=== PATIENT | female | born 1995 | race Caucasian/White ===

== ENCOUNTER 2017-12-22 09:02 | Inpatient (IN) | payer MEDICAID ==
[2017-12-22] MEDS ORDERED: ONDANSETRON HCL INJ/PF 4 MG/2 ML SDV IV ONE ×2 (09:34→16:08)
[2017-12-22] MEDS ORDERED: NORMAL SALINE 1000 ML 1,000 ML IV ONE (09:34)
--- NOTE | 2017-12-22 09:36 | ER Document Report ---
ED GI/ - General Chief Complaint: Abdominal Pain Stated Complaint: ABDOMINAL PAIN Time Seen by Provider: 12/22/17 09:27 Mode of Arrival: Ambulatory Information source: Patient Notes: Patient presents complaining of lower abdominal pain off and on since yesterday. Patient states she has had nausea and vomiting 4 episodes today. Patient denies any diarrhea or urinary symptoms. Patient states that she has not had a bowel movement for the past 2 days. Patient does complain of chills. Patient denies any vaginal discharge although is currently on her menstrual cycle. TRAVEL OUTSIDE OF THE [place] IN LAST 30 DAYS: No - HPI Patient complains to provider of: Pelvic pain, Vomiting. No: Diarrhea, Flank pain, Onset: Yesterday Timing/Duration: Persistent Quality of pain: Achy Pain Level: 3 Context: Other - Lower pelvic Location: Pelvis Vaginal bleeding (Compared to normal period): Similar Sexual history: Active Associated symptoms: Chills, Diarrhea, Nausea, Vomiting. denies: Fever Exacerbated by: Denies Relieved by: Denies Similar symptoms previously: No Recently seen / treated by doctor: No - Related Data Allergies/Adverse Reactions: No Known Allergies Allergy (Unverified 12/22/17 09:04) Past Medical History - General Information source: Patient - Social History Smoking Status: Current Every Day Smoker Frequency of alcohol use: None Drug Abuse: None Occupation: Foodservice Lives with: Spouse/Significant other Family History: Reviewed & Not Pertinent - Medical History Medical History: Negative Past Surgical History: Reports: Hx Gynecologic Surgery - Left ovary Review of Systems - Review of Systems Constitutional: Chills. denies: Fever, Recent illness EENT: No symptoms reported Cardiovascular: No symptoms reported. denies: Chest pain Respiratory: No symptoms reported. denies: Cough, Short of breath Gastrointestinal: Abdominal pain, Nausea, Vomiting. denies: Diarrhea, Blood streaked bowels, Poor appetite Genitourinary: No symptoms reported. denies: Dysuria, Flank pain Female Genitourinary: Last menstrual period - Current, Vaginal bleeding Musculoskeletal: No symptoms reported Skin: No symptoms reported Hematologic/Lymphatic: No symptoms reported Neurological/Psychological: No symptoms reported Physical Exam - Vital signs Vitals: Temp Pulse Resp BP Pulse Ox 98.0 F 61 24 H 115/62 100 12/22/17 09:13 12/22/17 09:13 12/22/17 09:13 12/22/17 09:13 12/22/17 09:13 - General General appearance: Appears well, Alert In distress: None - HEENT Head: Normocephalic, Atraumatic Eyes: Normal Conjunctiva: Normal Nasal: Normal Mouth/Lips: Normal Mucous membranes: Normal Neck: Normal - Respiratory Respiratory status: No respiratory distress Chest status: Nontender Breath sounds: Normal. No: Rales, Rhonchi, Stridor, Wheezing Chest palpation: Normal - Cardiovascular Rhythm: Regular Heart sounds: S1 appreciated, S2 appreciated Murmur: No - Abdominal Inspection: Normal Distension: No distension Bowel sounds: Normal Tenderness: Tender - Lower pelvic Organomegaly: No organomegaly - Genitourinary External exam: Normal Speculum exam: Normal, Cervix closed Vaginal bleeding: Mild Bimanuel exam: Normal. No: Cervical motion tender, Adnexal tenderness - Back Back: Normal, Nontender. No: CVA tenderness, Vertebra tenderness - Extremities General upper extremity: Normal ROM, Other - Patient holding hands in attendance awkward position, with distraction hands relax General lower extremity: Normal inspection, Normal ROM - Neurological Neuro grossly intact: Yes Cognition: Normal Caesar Coma Scale Eye Opening: Spontaneous [place] Coma Scale Verbal: Oriented Caesar Coma Scale Motor: Obeys Commands Caesar Coma Scale Total: 15 - Psychological Associated symptoms: Normal affect, Normal mood - Skin Skin Temperature: Warm Skin Moisture: Dry Skin Color: Normal Course - Re-evaluation Re-evalutation: 12/22/17 11:02 Patient continues with lower pelvic pain, patient does guard with palpation of the right lower quadrant. Patient without any adnexal or cervical motion tenderness. 12/22/17 12:[address] Ruiz regarding patient exam findings and diagnostic evaluation thus far. Agrees with plan for CT imaging and recommends treating the chlamydia. 12/22/17 15:[address] Casper return patient CT report findings. Dr. Casper to review patient's scan images. 12/22/17 15:30 Dr. Casper to come and evaluate patient 12/22/17 15:52 Dr. Casper evaluated patient, agrees to bring patient in for observation admission. - Vital Signs Vital signs: Temp Pulse Resp BP Pulse Ox 99.4 F 70 20 118/73 100 12/22/17 16:50 12/22/17 16:50 12/22/17 16:50 12/22/17 16:50 12/22/17 16:50 - Laboratory Result Diagrams: 12/22/17 09:50 12/22/17 09:50 Laboratory results interpreted by me: 12/22/17 12/22/17 12/22/17 09:50 09:50 10:15 WBC 13.0 H Hgb 11.5 L Hct 35.8 L MCV 73 L MCH 23.6 L RDW 19.4 H Seg Neutrophils % 86.7 H Lymphocytes % 10.0 L Monocytes % 2.8 L Absolute Neutrophils 11.2 H Carbon Dioxide 20 L Glucose 111 H Calcium 10.6 H Total Protein 9.0 H Albumin 5.2 H Urine Protein 100 H Urine Ketones 20 H Chlamydia DNA (PCR) 12/22/17 10:30 WBC Hgb Hct MCV MCH RDW Seg Neutrophils % Lymphocytes % Monocytes % Absolute Neutrophils Carbon Dioxide Glucose Calcium Total Protein Albumin Urine Protein Urine Ketones Chlamydia DNA (PCR) DETECTED H Discharge - Discharge Clinical Impression: Chlamydia, Small bowel obstruction Abdominal pain Qualifiers: Abdominal location: unspecified location Qualified Code(s): R10.9 - Unspecified abdominal pain Condition: Stable Disposition: ADMITTED OBSERVATION Admitting Provider: Surgicalist Unit Admitted: Medical Floor
[2017-12-22 10:08] LABS: ABSOLUTE BASOPHILS # (AUTO) 0.1 10^3/uL (0.0-0.2); ABSOLUTE LYMPHOCYTES (AUTO) 1.3 10^3/uL (0.5-4.7); ABSOLUTE MONOCYTES (AUTO) 0.4 10^3/uL (0.1-1.4); ABSOLUTE NEUT (AUTO) 11.2 10^3/uL (1.7-8.2); BASOPHILS % (AUTO) 0.5 % (0-2); HEMATOCRIT 35.8 % (36.0-47.0); HEMOGLOBIN 11.5 g/dL (12.0-15.5); MEAN CORPUSCULAR HEMOGLOBIN 23.6 pg (27.0-33.4); MEAN CORPUSCULAR HGB CONC 32.2 g/dL (32.0-36.0); MEAN CORPUSCULAR VOLUME 73 fl (80-97); MONOCYTES % (AUTO) 2.8 % (3-13); PLATELET COUNT 441 10^3/uL (150-450); RED BLOOD COUNT 4.87 10^6/uL (3.72-5.28); RED CELL DISTRIBUTION WIDTH 19.4 % (11.5-14.0); SEGMENTED NEUTROPHILS % (AUTO) 86.7 % (42-78); TOTAL CELLS COUNTED % (AUTO) 100 %
[2017-12-22 10:30] LABS: APPEARANCE,URINE SLIGHTLY-CLOUDY; BILIRUBIN,URINE NEGATIVE (NEGATIVE); COLOR,URINE YELLOW; GLUCOSE, URINE NEGATIVE (NEGATIVE); KETONES,URINE 20 mg/dL (NEGATIVE); LEUKOCYTE ESTERASE,URINE NEGATIVE (NEGATIVE); NITRITE,URINE NEGATIVE (NEGATIVE); PROTEIN,URINE 100 mg/dL (NEGATIVE); URINE SPECIFIC GRAVITY 1.028; UROBILINOGEN,URINE NEGATIVE mg/dL (<2.0)
[2017-12-22 10:37] LABS: ALANINE AMINOTRANSFERASE 23 U/L (9-52); ALBUMIN 5.2 g/dL (3.5-5.0); ALKALINE PHOSPHATASE 85 U/L (38-126); ANION GAP 17 (5-19); ASPARTATE AMINO TRANSFERASE 24 U/L (14-36); BILIRUBIN,DIRECT 0.3 mg/dL (0.0-0.4); BILIRUBIN,TOTAL 0.7 mg/dL (0.2-1.3); BLOOD UREA NITROGEN 16 mg/dL (7-20); CALCIUM 10.6 mg/dL (8.4-10.2); CARBON DIOXIDE 20 mmol/L (22-30); CHLORIDE 105 mmol/L (98-107); GLUCOSE 111 mg/dL (75-110); LIPASE 49.3 U/L (23-300); POTASSIUM 3.7 mmol/L (3.6-5.0); SODIUM 141.6 mmol/L (137-145)
[2017-12-22] MEDS ORDERED: KETOROLAC TROMETHAMINE INJ/PF 30 MG/1 ML SDV IV ONE (10:39)
[2017-12-22 10:46] LABS: BACTERIA (WET MOUNT) 4+ BACTERIA SEEN; EPITHELIALS (WET MOUNT) 3+ EPITHELIALS SEEN; RBCS (WET MOUNT) 4+ RBCS SEEN; T.VAGINALIS (WET MOUNT) NO TRICHOMONAS SEEN; WBCS (WET MOUNT) 1+ WBCS SEEN; YEAST (WET MOUNT) NO YEAST SEEN
[2017-12-22] MEDS ORDERED: FENTANYL CITRATE INJ/PF 100 MCG/2 ML AMPUL IV ONE (11:02)
[2017-12-22 12:15] LABS: CHLAM PCR DETECTED (NOT DETECT); GON PCR NOT DETECTED (NOT DETECT)
[2017-12-22] MEDS: NORMAL SALINE 1000 ML 1,000 ML IV PRN ×2 (12:46→18:45)
--- NOTE | 2017-12-22 14:46 | RADIOLOGY REPORT (SQ) ---
EXAM DESCRIPTION: CT ABD/PELVIS WITH IV ORAL COMPLETED DATE/TIME: 12/22/2017 2:23 pm REASON FOR STUDY: pelvic pain COMPARISON: None. TECHNIQUE: CT scan of the abdomen and pelvis performed using helical scanning technique with dynamic intravenous contrast injection. Patient drank oral contrast. Images reviewed with lung, soft tissue, and bone windows. Reconstructed coronal and sagittal MPR images reviewed. Delayed images for evaluation of the urinary system also ac quired. All images stored on PACS. All CT scanners at this facility use dose modulation, iterative reconstruction, and/or weight based d osing when appropriate to reduce radiation dose to as low as reasonably achievable (ALARA). [facility]: Dose Right [facility]: CareDose [facility]: Dose Right [facility]: Teradose 4D [facility]: about.me CONTRAST TYPE AND DOSE: contrast/concentration: Isovue 370.00 mg/ml; Total Contrast Delivered: 62.0 ml; Total Saline Delivered: 65.0 ml RENAL FUNCTION: Creatinine 0.6 RADIATION DOSE: CT Rad equipment meets quality standard of care and radiation dose reduction techniq ues were employed. CTDIvol: 5.1 - 5.9 mGy. DLP: 581 mGy-cm.. LIMITATIONS: None. FINDINGS: Patient drank oral contrast. There is distention of the stomach and distention of the mid to distal small bowel. On axial images 57 through 71, coronal images 15 through 29, a transition po int between normal caliber distal small bowel loops and dilated mid small bowel loops is present in t he suprapubic region. There is a tethered appearing loop of adjacent sigmoid colon. Findings are wo rrisome for at least partial small bowel obstruction related to adhesions in the pelvis. Trace posterior pelvic cul-de-sac and right lower quadrant free fluid. This was discussed with Zulma Graf in the emergency room. LOWER CHEST: Lung bases are clear. LIVER: Normal size. No masses. No dilated ducts. SPLEEN: Normal size. No focal lesions. PANCREAS: No masses. No significant calcifications. No adjacent inflammation or peripancreatic fluid collections. Pancreatic duct not dilated. GALLBLADDER: No identified stones by CT criteria. No inflammatory changes to suggest cholecystitis. ADRENAL GLANDS: No significant masses or asymmetry. RIGHT KIDNEY AND URETER: No solid masses. No significant calcifications. No hydronephrosis or hyd roureter. LEFT KIDNEY AND URETER: No solid masses. No significant calcifications. No hydronephrosis or hydr oureter. AORTA AND VESSELS: No aneurysm. No dissection. Renal arteries, SMA, celiac without stenosis. RETROPERITONEUM: No retroperitoneal adenopathy, hemorrhage or masses. BOWEL AND PERITONEAL CAVITY: As above APPENDIX: Surgically absent PELVIS: No mass. No free fluid. Normal bladder. Normal size uterus. Right ovary, left ovary not we ll seen. ABDOMINAL WALL: No masses. No hernias. BONES: No significant or acute findings. OTHER: No other significant finding. IMPRESSION: Findings worrisome for small bowel obstruction with transition point between dilated mid small bowel and decompressed distal small bowel is in the suprapubic region. Adjacent colon with te thered appearance. Findings are worrisome for adhesions TECHNICAL DOCUMENTATION: JOB ID: [id number] Quality ID # [id number]: Final reports with documentation of one or more dose reduction techniques (e.g., Au tomated exposure control, adjustment of the mA and/or kV according to patient size, use of iterative reconstruction technique) 2010 [employer] (Closed)- All Rights Reserved Reading location - IP/workstation name: [email or web address]
[2017-12-22] MEDS ORDERED: AZITHROMYCIN INJ 500 MG VIAL IV ONE (15:31)
[2017-12-22] MEDS ORDERED: RINGERS SOLUTION,LACTATED 1,000 ML IV PRN ×2 (18:37→23:02)
--- NOTE | 2017-12-22 18:43 | PDOC H&P ---
History of Present Illness Admission Date/PCP: 12/22/17 16:54 History of Present Illness: GERARDO GONZALEZ is a 22 year old female The patient presents emergency department via ground rescue complaining of a 2 day history of abdominal pain, worse yesterday, 10 episodes of vomiting, no bowel movement for 2 days. She denies history of trauma, previous episode. She was evaluated in the emergency department where she was initially felt to have urinary tract infection, possible pelvic inflammatory disease, positive for chlamydia on PCR. She was given a dose of Zithromax. Because of persisting abdominal pain and nausea she had a CT scan of the abdomen and pelvis with findings consistent with a small bowel obstruction, specifically dilated loop of distal small bowel in the pelvis. Surgery was consulted and because of these findings she was advised admission. Past Medical History Cardiac Medical History: Reports: Atrial Fibrillation Past Surgical History Past Surgical History: Reports: Other - Exploratory laparotomy, appendectomy, left oophorectomy, [place], 1 yea Social History Lives with: Spouse/Significant other Smoking Status: Current Every Day Smoker Hx Recreational Drug Use: No Hx Prescription Drug Abuse: No Family History Family History: Reviewed & Not Pertinent Parental Family History Reviewed: Yes Children Family History Reviewed: Yes Sibling(s) Family History Reviewed.: Yes Medication/Allergy Home Medications: No Home Medications 12/22/17 Allergies/Adverse Reactions: No Known Allergies Allergy (Unverified 12/22/17 09:04) Review of Systems Constitutional: PRESENT: as per HPI Eyes: ABSENT: visual disturbances Ears: ABSENT: hearing changes Cardiovascular: ABSENT: chest pain, dyspnea on exertion, edema, orthropnea, palpitations Gastrointestinal: ABSENT: abdominal pain, constipation, diarrhea, hematemesis, hematochezia, nausea, vomiting Genitourinary: ABSENT: dysuria, hematuria Musculoskeletal: ABSENT: joint swelling Integumentary: ABSENT: rash, wounds Endocrine: ABSENT: cold intolerance, heat intolerance, polydipsia, polyuria Physical Exam Vital Signs: Temp Pulse Resp BP Pulse Ox 99.4 F 70 20 118/73 100 12/22/17 16:50 12/22/17 16:50 12/22/17 16:50 12/22/17 16:50 12/22/17 16:50 General appearance: PRESENT: mild distress Head exam: PRESENT: normocephalic Eye exam: PRESENT: EOMI Mouth exam: PRESENT: dry mucosa Respiratory exam: PRESENT: clear to auscultation [place] Cardiovascular exam: PRESENT: RRR Pulses: PRESENT: normal carotid pulses, normal radial pulses GI/Abdominal exam: PRESENT: other - Mild distention, mild tympany, no peritoneal signs no rigidity. Well-healed midline scar below the umbilicus, no hernias. No groin hernias Rectal exam: PRESENT: deferred Extremities exam: PRESENT: full ROM Musculoskeletal exam: PRESENT: ambulatory Psychiatric exam: PRESENT: appropriate affect Results Impressions: Abdomen/Pelvis CT 12/22/17 00:00 IMPRESSION: Findings worrisome for small bowel obstruction with transition point between dilated mid small bowel and decompressed distal small bowel is in the suprapubic region. Adjacent colon with tethered appearance. Findings are worrisome for adhesions Assessment & Plan - Diagnosis (1) Small bowel obstruction Is this a current diagnosis for this admission?: Yes Plan: First episode, possibly due to an adhesion from previous abdominal surgery, improved, no nasogastric tube inserted yet. Recommendations: 1. Admit, IV fluids, n.p.o., plus minus NG tube if patient becomes nauseated 2. Plan to patient that if her symptoms do not improve, she may require exploratory laparotomy, lysis of adhesion. (2) Chlamydia Is this a current diagnosis for this admission?: Yes Plan: Treated with Zithromax. - Time Time Spent: 50 to 70 Minutes Critical Time spent with patient: 15-24 minutes Anticipated discharge: Home - Inpatient Certification Based on my medical assessment, after consideration of the patient's comorbidities, presenting symptoms, or acuity I expect that the services needed warrant INPATIENT care.: Yes I certify that my determination is in accordance with my understanding of Medicare's requirements for reasonable and necessary INPATIENT services [42 CFR 412.3e].: Yes Medical Necessity: Need For IV Fluids, Need for Pain Control, Need for IV Antibiotics
[2017-12-22] MEDS ORDERED: DEXTROSE 40% GEL 15 GM TUBE PO PRN ×2 (19:27)
[2017-12-22] MEDS ORDERED: GLUCAGON,HUMAN RECOMB 1 MG INJ SUBCUT PRN (19:27)
[2017-12-22] MEDS ORDERED: DEXTROSE 50%-WATER 25 GM/50 ML DISP.SYRIN IV PRN ×2 (19:27)
[2017-12-22] MEDS ORDERED: PHARMACY COMMUNICATION ORDER MC NR (23:00)
[2017-12-22] MEDS ORDERED: NORMAL SALINE 1000 ML 1,000 ML IV PRN (23:03)
[2017-12-22] MEDS ORDERED: DEXTROSE 40% GEL 15 GM TUBE NG PRN ×2 (23:30)
[2017-12-23] MEDS ORDERED: NORMAL SALINE 1000 ML 1,000 ML IV PRN (00:42)
[2017-12-23] MEDS ORDERED: NORMAL SALINE 1000 ML 1,000 ML IV ONE (01:45)
[2017-12-23] MEDS: KETOROLAC TROMETHAMINE INJ/PF 30 MG/1 ML SDV IV PRN (02:56)
[2017-12-23 06:43] LABS: ANION GAP 12 (5-19); BLOOD UREA NITROGEN 10 mg/dL (7-20); CALCIUM 8.7 mg/dL (8.4-10.2); CARBON DIOXIDE 22 mmol/L (22-30); CHLORIDE 107 mmol/L (98-107); GLUCOSE 111 mg/dL (75-110); POTASSIUM 3.5 mmol/L (3.6-5.0); SODIUM 141.4 mmol/L (137-145)
--- NOTE | 2017-12-23 08:32 | RADIOLOGY REPORT (SQ) ---
EXAM DESCRIPTION: ABDOMEN 2 VIEWS COMPLETED DATE/TIME: 12/23/2017 8:09 am REASON FOR STUDY: f/u bowel obstruction COMPARISON: CT dated 12/22/2017. NUMBER OF VIEWS: Two views. TECHNIQUE: Supine and erect/decubitus radiographic images of the abdomen acquired. LIMITATIONS: None. FINDINGS: FREE AIR: Dilated small bowel with air-fluid levels. Faint contrast in the small bowel. LUNG BASES: Clear. BOWEL GAS PATTERN: Nonobstructive pattern. No dilated loops or air fluid levels. CALCIFICATIONS: No suspicious calcifications. SOFT TISSUES: No gross mass or suggestion of organomegaly. HARDWARE: Nasogastric tube with the tip in the stomach. BONES: No acute fracture. No worrisome bone lesions. OTHER: No other significant finding. IMPRESSION: SMALL BOWEL OBSTRUCTION. NASOGASTRIC TUBE WITH THE TIP IN STOMACH. TECHNICAL DOCUMENTATION: JOB ID: [id number] [employer]- All Rights Reserved Reading location - IP/workstation name: [email or web address]
[2017-12-23] MEDS: ONDANSETRON HCL INJ/PF 4 MG/2 ML SDV IV PRN ×2 (08:43)
[2017-12-23] MEDS ORDERED: CEFOXITIN SODIUM 2 GM in DEXTROSE 5%-WATER 100 ML IV PRN (10:10)
--- NOTE | 2017-12-23 10:26 | PDOC PROGRESS REPORT ---
Subjective Progress Note for:: 12/23/17 Subjective:: no c/o. no flatus or stoosl this AM Reason For Visit: SMALL BOWEL OBSTRUCTIONS Physical Exam Vital Signs: Temp Pulse Resp BP Pulse Ox 98.0 F 49 L 18 110/53 L 100 12/23/17 08:44 12/23/17 08:44 12/23/17 08:44 12/23/17 08:44 12/23/17 08:44 Intake & Output 12/22/17 12/23/17 12/24/17 06:59 06:59 06:59 Intake Total 240 Output Total 800 Balance -560 Weight 62.5 kg General appearance: PRESENT: no acute distress, cooperative Respiratory exam: PRESENT: clear to auscultation [place] Cardiovascular exam: PRESENT: RRR GI/Abdominal exam: PRESENT: distended, hypoactive bowel sounds, soft Results Laboratory Results: 12/23/17 06:11 12/23/17 06:11 Sodium 141.4 Potassium 3.5 L Chloride 107 Carbon Dioxide 22 Anion Gap 12 BUN 10 Creatinine 0.60 Est GFR ( Amer) > 60 Est GFR (Non-Af Amer) > 60 Glucose 111 H Calcium 8.7 Impressions: Abdomen/Pelvis CT 12/22/17 00:00 IMPRESSION: Findings worrisome for small bowel obstruction with transition point between dilated mid small bowel and decompressed distal small bowel is in the suprapubic region. Adjacent colon with tethered appearance. Findings are worrisome for adhesions Abdomen X-Ray 12/23/17 00:00 IMPRESSION: SMALL BOWEL OBSTRUCTION. NASOGASTRIC TUBE WITH THE TIP IN STOMACH. Assessment & Plan - Diagnosis (1) Abdominal pain Qualifiers: Abdominal location: unspecified location Qualified Code(s): R10.9 - Unspecified abdominal pain Is this a current diagnosis for this admission?: Yes (2) Small bowel obstruction Is this a current diagnosis for this admission?: Yes - Plan Summary Plan Summary: A/ No flatus x 3 days and small stool last night Flat plate of the abdomen reveals complete small bowel obstruction today: no progress of dye x 12 hours and gasless colon hx of previous laparotomy for Left ovarietomy and incidental appendectomy 1 year ago P/ Plan diagnostic laparoscopy, lysis of adhesions, possible laparotomy, possible bowel resection Mefoxin IVPB preop Procedure, risks, benefits explained to the patient, she understand, her questions were answered, and she decides to proceed
[2017-12-23] MEDS ORDERED: LIDOCAINE 2% INJ-PF (20 MG/ML) 10 ML AMPUL ONE (10:28)
[2017-12-23] MEDS ORDERED: FENTANYL CITRATE INJ/PF 100 MCG/2 ML AMPUL ONE (10:28)
[2017-12-23] MEDS ORDERED: MIDAZOLAM 2 MG/2 ML INJ ONE (10:29)
[2017-12-23] MEDS ORDERED: DEXAMETHASONE SOD PHOSPHATE INJ 4 MG/1 ML VIAL ONE (10:29)
[2017-12-23] MEDS ORDERED: ACETAMINOPHEN 100 ML IV ONE (10:29)
[2017-12-23] MEDS ORDERED: ONDANSETRON HCL INJ/PF 4 MG/2 ML SDV ONE (10:29)
[2017-12-23] MEDS ORDERED: PROPOFOL INJ 200 MG/20 ML VIAL IV ONE (10:29)
[2017-12-23] MEDS ORDERED: BUPIVACAINE HCL 0.5%-EPI 1:200000 INJ/PF 30 ML VIAL ONE (11:54)
[2017-12-23] MEDS ORDERED: DIPHENHYDRAMINE HCL 50 MG/ML VIAL IV PRN (12:03)
[2017-12-23] MEDS ORDERED: MORPHINE SULFATE 10 MG/ML INJ IV PRN (12:03)
[2017-12-23] MEDS ORDERED: MEPERIDINE HCL/PF INJ 25 MG/1 ML DISP.SYRIN IV PRN (12:03)
[2017-12-23] MEDS ORDERED: PROMETHAZINE HCL INJ 25 MG/1 ML VIAL IV PRN ×2 (12:03)
[2017-12-23] MEDS ORDERED: FENTANYL CITRATE INJ/PF 100 MCG/2 ML AMPUL IV PRN ×3 (12:03)
--- NOTE | 2017-12-23 13:34 | Operative Report ---
Nonrecallable Operative Report DATE OF SURGERY: 12/23/17 PREOPERATIVE DIAGNOSIS: completre small bowel obstruction OPERATION: diagnostic laparoscopy. Extensive laparoscopic lysis of adhesions SURGEON: ELAINE ORLANDO 1ST WORKFORCE ANALYST: SUZANNE DENTON ANESTHESIA: GA - plus 10 mL 0.5% marcaine with epi TISSUE REMOVED OR ALTERED: none COMPLICATIONS: none ESTIMATED BLOOD LOSS: negligible INTRAOPERATIVE FINDINGS: several loops of terminal ileum matted together against the anterior abdominal wall and among themselves PROCEDURE: see dictation
[2017-12-23] MEDS ORDERED: ONDANSETRON HCL INJ/PF 4 MG/2 ML SDV IV PRN (15:34)
--- NOTE | 2017-12-23 16:45 | OPERATIVE REPORT E ---
Operative Report NAME: GERARDO GONZALEZ : 1995 AGE: 22Y DATE OF SURGERY: 12/23/2017 ROOM: 208 PREOPERATIVE DIAGNOSIS: Small bowel obstruction, complete. POSTOPERATIVE DIAGNOSIS: Small bowel obstruction, complete. PROCEDURES: 1. Diagnostic laparoscopy. 2. Extensive laparoscopic lysis of adhesions. SURGEON: ELAINE ORLANDO M.D. FASTENER TECHNOLOGIST: Dr. DENTON. COMPLICATIONS: None. ANESTHESIA: General. FLUIDS: 1500. URINE OUTPUT: 300. DRAINS: None. BLOOD LOSS: Negligible. INDICATION AND FINDINGS: This is a 22-year-old female status post open elective oophorectomy with an incidental appendectomy a year ago at [facility]. The patient presented to the hospital yesterday with abdominal distention, nausea, vomiting, found to have a complete small bowel obstruction on CAT scan and on repeated films this morning. This morning, the decision was made to take the patient to surgery for diagnostic laparoscopy, possible laparotomy, possible lysis of adhesions. DESCRIPTION OF PROCEDURE: The procedure was done in the operating room. The patient was placed in the supine position. General anesthesia was induced by endotracheal intubation. Silva catheter was inserted. Abdomen was prepped and draped in the usual fashion. A 5 mm scope with Optiview adapter and port was inserted through the left upper quadrant under direct visualization. A pneumoperitoneum was then obtained. Under direct visualization, two 5 mm ports were inserted in the left lateral quadrant of the abdomen. The patient was placed in deep Trendelenburg position. At this point, the small bowel was run. Several loops of bowel were found to be decompressed and adherent to the anterior abdominal wall. These were taken down with both Bovie and sharp dissection. When this was accomplished, the cecum was identified and the small bowel was run from the terminal ileum to the ligament of Treitz. Several loops of terminal ileum were found to be mattered to each other. These loops were then painstakingly with sharp and LigaSure dissection. The small bowel was completely dissected and . In addition, multiple single strings of scar tissue around the loops of small bowel were identified and these were divided with Bovie. After this was accomplished, the small bowel was run multiple times in the distal proximal and proximal distal fashion. No injuries of the serosa or violation of the mucosa were identified. This was confirmed multiple times. After this was accomplished, the peritoneal cavity was irrigated with normal saline, which was fully aspirated. At this point, all instruments were removed. The CO2 pneumoperitoneum was released. The ports were removed. The skin incisions were closed with 4-0 Vicryl running subcuticular suture and covered with Dermabond. The patient was then extubated and transferred to the recovery room in satisfactory condition. DICTATING PHYSICIAN: ELAINE ORLANDO M.D. [id number] PHY#: [id number] ID: [id number] JOB#: [id number] ACCT: [id number] cc:ELAINE ORLANDO M.D. > MTDD
[2017-12-23] MEDS: NORMAL SALINE 1000 ML 1,000 ML IV PRN (20:00)
[2017-12-23] MEDS ORDERED: VECURONIUM BROMIDE INJ 10 MG VIAL IV ONE (21:18)
[2017-12-23] MEDS ORDERED: GLYCOPYRROLATE INJ 0.4 MG/2 ML VIAL ONE (21:18)
[2017-12-23] MEDS ORDERED: SUCCINYLCHOLINE CHLORIDE INJ 200 MG/10 ML VIAL ONE (21:18)
[2017-12-23] MEDS ORDERED: NEOSTIGMINE METHYLSULFATE 10 MG/10 ML VIAL ONE (21:18)
[2017-12-23] MEDS: CEFOXITIN SODIUM 2 GM in DEXTROSE 5%-WATER 100 ML IV SCH (22:14)
[2017-12-23] MEDS: FAMOTIDINE INJ/PF 20 MG/2 ML SDV IV SCH (22:14)
[2017-12-24] MEDS: NORMAL SALINE 1000 ML 1,000 ML IV PRN ×3 (03:28→21:36)
[2017-12-24] MEDS: CEFOXITIN SODIUM 2 GM in DEXTROSE 5%-WATER 100 ML IV SCH ×3 (06:32→21:37)
[2017-12-24] MEDS: ENOXAPARIN SODIUM INJ 40 MG/0.4 ML DISP.SYRIN SUBCUT SCH (09:46)
[2017-12-24] MEDS: HYDROMORPHONE HCL INJ/PF 2 MG/ML AMPULE IV PRN (09:47)
[2017-12-24] MEDS: FAMOTIDINE INJ/PF 20 MG/2 ML SDV IV SCH ×2 (09:47→21:38)
[2017-12-24] MEDS: KETOROLAC TROMETHAMINE INJ/PF 30 MG/1 ML SDV IV PRN (13:41)
--- NOTE | 2017-12-24 14:31 | PDOC PROGRESS REPORT ---
Subjective Progress Note for:: 12/24/17 Subjective:: Comfortable, reports flatus and stools Reason For Visit: SMALL BOWEL OBSTRUCTIONS Physical Exam Vital Signs: Temp Pulse Resp BP Pulse Ox 97.9 F 54 L 16 109/51 L 100 12/24/17 11:25 12/24/17 11:25 12/24/17 11:25 12/24/17 11:25 12/24/17 11:25 Intake & Output 12/23/17 12/24/17 12/25/17 06:59 06:59 06:59 Intake Total 600 Output Total 350 350 Balance 250 -350 Weight 62.5 kg General appearance: PRESENT: no acute distress, cooperative Respiratory exam: PRESENT: clear to auscultation [place] Cardiovascular exam: PRESENT: RRR GI/Abdominal exam: PRESENT: normal bowel sounds, soft, other - all incision C/D/ I Results Impressions: Abdomen/Pelvis CT 12/22/17 00:00 IMPRESSION: Findings worrisome for small bowel obstruction with transition point between dilated mid small bowel and decompressed distal small bowel is in the suprapubic region. Adjacent colon with tethered appearance. Findings are worrisome for adhesions Abdomen X-Ray 12/23/17 00:00 IMPRESSION: SMALL BOWEL OBSTRUCTION. NASOGASTRIC TUBE WITH THE TIP IN STOMACH. Assessment & Plan - Diagnosis (1) Abdominal pain Qualifiers: Abdominal location: unspecified location Qualified Code(s): R10.9 - Unspecified abdominal pain Is this a current diagnosis for this admission?: Yes (2) Small bowel obstruction Is this a current diagnosis for this admission?: Yes - Plan Summary Plan Summary: A/ POD #1 after laparoscopic lysis of adhesions VSS, AF Flatus and stools Abdomen soft P/ Clamp NGT x 4 hours: if residual less than 100 mL, remove NGT and Silva Advance diet to clear liquid if NGT is removed Possible discharge tomorrow
[2017-12-25] MEDS: KETOROLAC TROMETHAMINE INJ/PF 30 MG/1 ML SDV IV PRN ×3 (03:21→15:26)
[2017-12-25 05:19] LABS: ABSOLUTE BASOPHILS # (AUTO) 0.1 10^3/uL (0.0-0.2); ABSOLUTE LYMPHOCYTES (AUTO) 2.7 10^3/uL (0.5-4.7); ABSOLUTE MONOCYTES (AUTO) 0.4 10^3/uL (0.1-1.4); BASOPHILS % (AUTO) 0.9 % (0-2); EOSINOPHILS % (AUTO) 0.7 % (0-6); HEMATOCRIT 28.2 % (36.0-47.0); LYMPHOCYTES % (AUTO) 43.7 % (13-45); MEAN CORPUSCULAR HEMOGLOBIN 24.4 pg (27.0-33.4); MEAN CORPUSCULAR HGB CONC 32.6 g/dL (32.0-36.0); MEAN CORPUSCULAR VOLUME 75 fl (80-97); MONOCYTES % (AUTO) 6.2 % (3-13); PLATELET COUNT 234 10^3/uL (150-450); RED BLOOD COUNT 3.77 10^6/uL (3.72-5.28); RED CELL DISTRIBUTION WIDTH 19.3 % (11.5-14.0); SEGMENTED NEUTROPHILS % (AUTO) 48.5 % (42-78); TOTAL CELLS COUNTED % (AUTO) 100 %; WHITE BLOOD COUNT 6.1 10^3/uL (4.0-10.5)
[2017-12-25 05:23] LABS: HEMOGLOBIN 9.2 g/dL (12.0-15.5)
[2017-12-25 05:35] LABS: ANION GAP 10 (5-19); BLOOD UREA NITROGEN 8 mg/dL (7-20); CALCIUM 8.8 mg/dL (8.4-10.2); CARBON DIOXIDE 26 mmol/L (22-30); CHLORIDE 106 mmol/L (98-107); GLUCOSE 77 mg/dL (75-110); POTASSIUM 3.3 mmol/L (3.6-5.0); SODIUM 141.7 mmol/L (137-145)
[2017-12-25] MEDS: CEFOXITIN SODIUM 2 GM in DEXTROSE 5%-WATER 100 ML IV SCH ×2 (06:04→13:13)
[2017-12-25] MEDS: HYDROMORPHONE HCL INJ/PF 2 MG/ML AMPULE IV PRN ×3 (06:27→13:13)
[2017-12-25] MEDS: FAMOTIDINE INJ/PF 20 MG/2 ML SDV IV SCH (09:10)
[2017-12-25] MEDS: ENOXAPARIN SODIUM INJ 40 MG/0.4 ML DISP.SYRIN SUBCUT SCH (09:10)
[2017-12-25] MEDS ORDERED: LIDOCAINE 2% INJ-PF (20 MG/ML) 2 ML AMPUL ONE (11:22)
[2017-12-25] MEDS ORDERED: ROCURONIUM BROMIDE INJ 50 MG/5 ML VIAL IV ONE (11:22)
[2017-12-25] MEDS ORDERED: NEOSTIGMINE METHYLSULFATE 10 MG/10 ML VIAL ONE (11:22)
[2017-12-25] MEDS ORDERED: ONDANSETRON HCL INJ/PF 4 MG/2 ML SDV ONE (11:22)
[2017-12-25] MEDS ORDERED: KETOROLAC TROMETHAMINE 60 MG/2 ML SDV ONE (11:22)
[2017-12-25] MEDS ORDERED: SUCCINYLCHOLINE CHLORIDE INJ 200 MG/10 ML VIAL ONE (11:22)
[2017-12-25] MEDS ORDERED: DEXAMETHASONE SOD PHOSPHATE INJ 4 MG/1 ML VIAL ONE (11:22)
[2017-12-25] MEDS ORDERED: GLYCOPYRROLATE INJ 0.4 MG/2 ML VIAL ONE (11:22)
[2017-12-25] MEDS ORDERED: SIMETHICONE 80 MG TAB.CHEW NG ONE (12:43)
[2017-12-25] MEDS ORDERED: DOCUSATE SODIUM 100 MG CAPSULE PO ONE (13:30)
[2017-12-25] MEDS ORDERED: GLUCAGON,HUMAN RECOMB 1 MG INJ SUBCUT PRN (13:30)
[2017-12-25] MEDS ORDERED: DEXTROSE 50%-WATER 25 GM/50 ML DISP.SYRIN IV PRN ×2 (13:30)
[2017-12-25] MEDS ORDERED: DEXTROSE 40% GEL 15 GM TUBE PO PRN ×2 (13:30)
[2017-12-25] MEDS ORDERED: NORMAL SALINE 1000 ML 1,000 ML IV PRN (13:31)
--- NOTE | 2017-12-25 13:37 | PDOC PROGRESS REPORT ---
Subjective Progress Note for:: 12/25/17 Subjective:: flatus present; small hard stools today, c/o midabdominal pain Reason For Visit: SMALL BOWEL OBSTRUCTIONS Physical Exam Vital Signs: Temp Pulse Resp BP Pulse Ox 99.9 F 74 20 111/51 L 100 12/25/17 12:00 12/25/17 12:00 12/25/17 12:00 12/25/17 12:00 12/25/17 07:15 Intake & Output 12/24/17 12/25/17 12/26/17 06:59 06:59 06:59 Intake Total 600 1650 Output Total 350 2470 Balance 250 -820 Weight 62.5 kg General appearance: PRESENT: no acute distress, cooperative Respiratory exam: PRESENT: clear to auscultation [place] Cardiovascular exam: PRESENT: RRR GI/Abdominal exam: PRESENT: normal bowel sounds, soft, tenderness - at surgical incisions, other - no peritoneal signs on gentle tapping Results Laboratory Results: 12/25/17 05:01 12/25/17 05:01 12/25/17 12/25/17 05:01 05:01 WBC 6.1 RBC 3.77 Hgb 9.2 L D Hct 28.2 L MCV 75 L MCH 24.4 L MCHC 32.6 RDW 19.3 H Plt Count 234 Seg Neutrophils % 48.5 Lymphocytes % 43.7 Monocytes % 6.2 Eosinophils % 0.7 Basophils % 0.9 Absolute Neutrophils 3.0 Absolute Lymphocytes 2.7 Absolute Monocytes 0.4 Absolute Eosinophils 0.0 Absolute Basophils 0.1 Sodium 141.7 Potassium 3.3 L Chloride 106 Carbon Dioxide 26 Anion Gap 10 BUN 8 Creatinine 0.55 Est GFR ( Amer) > 60 Est GFR (Non-Af Amer) > 60 Glucose 77 Calcium 8.8 Impressions: Abdomen/Pelvis CT 12/22/17 00:00 IMPRESSION: Findings worrisome for small bowel obstruction with transition point between dilated mid small bowel and decompressed distal small bowel is in the suprapubic region. Adjacent colon with tethered appearance. Findings are worrisome for adhesions Abdomen X-Ray 12/23/17 00:00 IMPRESSION: SMALL BOWEL OBSTRUCTION. NASOGASTRIC TUBE WITH THE TIP IN STOMACH. Assessment & Plan - Diagnosis (1) Abdominal pain Qualifiers: Abdominal location: unspecified location Qualified Code(s): R10.9 - Unspecified abdominal pain Is this a current diagnosis for this admission?: Yes (2) Small bowel obstruction Is this a current diagnosis for this admission?: Yes - Plan Summary Plan Summary: A/ POD#2 after laparoscopic POA for SBO Low grade temp 99.2 Flatus and stools today WBC normal K 3.3 P/ NPO Two view abdomen to r/o intraabdominal pathology If Xray is normal diet can be advanced and, if tolerated, patient can be discharged to home [place]
--- NOTE | 2017-12-25 14:19 | RADIOLOGY REPORT (SQ) ---
EXAM DESCRIPTION: ABDOMEN 2 VIEWS COMPLETED DATE/TIME: 12/25/2017 2:07 pm REASON FOR STUDY: postop abdominal pain COMPARISON: 12/23/2017. NUMBER OF VIEWS: Two views. TECHNIQUE: Supine and erect/decubitus radiographic images of the abdomen acquired. LIMITATIONS: None. FINDINGS: FREE AIR: Free air under the right and left hemidiaphragm. LUNG BASES: Clear. BOWEL GAS PATTERN: Nonobstructive pattern. No dilated loops or air fluid levels. CALCIFICATIONS: No suspicious calcifications. SOFT TISSUES: No gross mass or suggestion of organomegaly. HARDWARE: None in the abdomen. BONES: No acute fracture. No worrisome bone lesions. OTHER: No other significant finding. IMPRESSION: FREE AIR, PRESUMED SECONDARY TO RECENT SURGERY (POSTOPERATIVE DAY 2). NO OTHER SIGNIFIC ANT FINDING. TECHNICAL DOCUMENTATION: JOB ID: [id number] [employer]- All Rights Reserved Reading location - IP/workstation name: [email or web address]
--- NOTE | 2017-12-25 19:39 | RADIOLOGY REPORT (SQ) ---
EXAM DESCRIPTION: CT ABD/PELVIS WITH IV ORAL COMPLETED DATE/TIME: 12/25/2017 6:35 pm REASON FOR STUDY: postop laparoscopy, free air on Xray; r/o perforat COMPARISON: None. TECHNIQUE: CT scan of the abdomen and pelvis performed using helical scanning technique with dynamic intravenous contrast injection. No oral contrast. Images reviewed with lung, soft tissue, and bone windows. Reconstructed coronal and sagittal MPR images reviewed. Delayed images for evaluation of the urinary system also acquired. All images stored on PACS. All CT scanners at this facility use dose modulation, iterative reconstruction, and/or weight based d osing when appropriate to reduce radiation dose to as low as reasonably achievable (ALARA). [facility]: Dose Right [facility]: CareDose [facility]: Dose Right [facility]: Teradose 4D [facility]: Kamego CONTRAST TYPE AND DOSE: contrast/concentration: Isovue 370.00 mg/ml; Total Contrast Delivered: 67.0 ml; Total Saline Delivered: 65.0 ml RENAL FUNCTION: None required. The patient is less than 50 years old. RADIATION DOSE: CT Rad equipment meets quality standard of care and radiation dose reduction techniq ues were employed. CTDIvol: 5.2 - 6.3 mGy. DLP: 611 mGy-cm.. LIMITATIONS: None. FINDINGS: LOWER CHEST: Small bilateral pleural effusions. LIVER: Normal size. No masses. No dilated ducts. SPLEEN: Normal size. No focal lesions. PANCREAS: No masses. No significant calcifications. No adjacent inflammation or peripancreatic fluid collections. Pancreatic duct not dilated. GALLBLADDER: No identified stones by CT criteria. No inflammatory changes to suggest cholecystitis. ADRENAL GLANDS: No significant masses or asymmetry. RIGHT KIDNEY AND URETER: No solid masses. No significant calcifications. No hydronephrosis or hyd roureter. LEFT KIDNEY AND URETER: No solid masses. No significant calcifications. No hydronephrosis or hydr oureter. AORTA AND VESSELS: No aneurysm. No dissection. Renal arteries, SMA, celiac without stenosis. RETROPERITONEUM: No retroperitoneal adenopathy, hemorrhage or masses. BOWEL AND PERITONEAL CAVITY: Contrast is noted to be leaking from the bowel in the distal ileum filli ng the left lower quadrant mesentery. Moderate bowel wall thickening in the distal jejunum and ileum . APPENDIX: Normal. PELVIS: Moderate free fluid. Normal bladder. ABDOMINAL WALL: No masses. No hernias. BONES: No significant or acute findings. OTHER: No other significant finding. IMPRESSION: Contrast is noted to be leaking from the bowel in the distal ileum filling the left lowe r quadrant mesentery. COMMENT: These results were discussed with the ordering surgeon at 1930 hours. Results were confirm ed and read back. TECHNICAL DOCUMENTATION: JOB ID: [id number] Quality ID # [id number]: Final reports with documentation of one or more dose reduction techniques (e.g., Au tomated exposure control, adjustment of the mA and/or kV according to patient size, use of iterative reconstruction technique) 2010 [employer]- All Rights Reserved Reading location - IP/workstation name: [email or web address]
[2017-12-25] MEDS ORDERED: HYDROMORPHONE HCL INJ/PF 2 MG/ML AMPULE ONE (20:06)
[2017-12-25] MEDS ORDERED: PROPOFOL INJ 200 MG/20 ML VIAL IV ONE (20:06)
[2017-12-25] MEDS ORDERED: FENTANYL CITRATE INJ/PF 250 MCG/5 ML AMPULE ONE (20:06)
[2017-12-25] MEDS ORDERED: ACETAMINOPHEN 100 ML IV ONE (20:06)
[2017-12-25] MEDS ORDERED: MIDAZOLAM 2 MG/2 ML INJ ONE (20:06)
[2017-12-25] MEDS ORDERED: BUPIVACAINE HCL 0.5%-EPI 1:200000 INJ/PF 30 ML VIAL ONE (21:09)
[2017-12-25] MEDS ORDERED: DIPHENHYDRAMINE HCL 50 MG/ML VIAL IV PRN (21:11)
[2017-12-25] MEDS ORDERED: FENTANYL CITRATE INJ/PF 100 MCG/2 ML AMPUL IV PRN ×3 (21:11)
[2017-12-25] MEDS ORDERED: PROMETHAZINE HCL INJ 25 MG/1 ML VIAL IV PRN ×2 (21:11)
[2017-12-25] MEDS ORDERED: ONDANSETRON HCL INJ/PF 4 MG/2 ML SDV IV PRN (21:11)
[2017-12-25] MEDS ORDERED: MEPERIDINE HCL/PF INJ 25 MG/1 ML DISP.SYRIN IV PRN (21:11)
[2017-12-25] MEDS ORDERED: CIPROFLOXACIN 400 MG/D5W RTU 400 MG/200 ML RTUPB IV ONE ×2 (23:00→23:36)
--- NOTE | 2017-12-25 23:22 | Operative Report ---
Nonrecallable Operative Report DATE OF SURGERY: 12/25/17 PREOPERATIVE DIAGNOSIS: pneumoperitoneum. perforated small bowel. s/p laparoscopic lysis of adhesions POSTOPERATIVE DIAGNOSIS: same. perforation of terminal ileum @ 20 cm proximal to the IC valve OPERATION: exporatory laparotomy. small bowel resection x 2 SURGEON: ELAINE ORLANDO ANESTHESIA: GA - plus 30 mL 05% marcaine with epinephrine TISSUE REMOVED OR ALTERED: small bowel segment x 2 COMPLICATIONS: none ESTIMATED BLOOD LOSS: 20 mL INTRAOPERATIVE FINDINGS: bilious and enteric intraperitoneal fluid. small bowel perforatoin 20 cm proximal to the IC valve. several areas of deserosalized terminal ileum grouped in a single loop PROCEDURE: see dictation
[2017-12-25] MEDS ORDERED: METRONIDAZOLE 500 MG/NS RTU 100 ML IV ONE ×2 (23:36→23:45)
[2017-12-25] MEDS ORDERED: FAMOTIDINE INJ/PF 20 MG/2 ML SDV IV ONE (23:45)
[2017-12-25] MEDS ORDERED: HYDROMORPHONE HCL INJ/PF 2 MG/ML AMPULE IV PRN (23:48)
--- NOTE | 2017-12-26 | OPERATIVE REPORT E ---
Operative Report NAME: GERARDO GONZALEZ : 1995 AGE: 22Y DATE OF SURGERY: 12/25/2017 ROOM: 208 PREOPERATIVE DIAGNOSES: 1. PNEUMOPERITONEUM. 2. SMALL BOWEL PERFORATION. 3. STATUS POST LAPAROSCOPIC LYSIS OF ADHESIONS. POSTOPERATIVE DIAGNOSES: 1. PNEUMOPERITONEUM. 2. SMALL BOWEL PERFORATION. 3. STATUS POST LAPAROSCOPIC LYSIS OF ADHESIONS. OPERATIONS: 1. Exploratory laparotomy. 2. Small bowel resection x2. SURGEON: ELAINE ORLANDO M.D. DATABASE PROGRAMMER ANALYST: None. ANESTHESIA: General plus 30 mL of 0.5% Marcaine with epinephrine. ESTIMATED BLOOD LOSS: Minimal. COMPLICATIONS: None. FLUIDS: 2500. URINE OUTPUT: 125. DRAINS: None. INDICATIONS AND FINDINGS: This is a healthy 22-year-old female who underwent an open left oophorectomy for a complex benign cyst and incidental appendectomy. She presented to the emergency room 4 days ago complaining of abdominal pain, nausea, vomiting, obstipation, found to have complete small bowel obstruction. The patient was taken to surgery 2 days ago, and she underwent a diagnostic laparoscopy and a laparoscopic extensive lysis of adhesions. The procedure was uneventful. Her postop course was initially unremarkable, with stable vital signs, normal blood work and flatus. Her diet was then advanced to clear liquids. However, this morning, during rounds, the patient presented with midabdominal pain. An abdominal obstructive series was done, revealing the presence of pneumoperitoneum. A CT scan of the abdomen and pelvis was repeated with oral contrast, and this revealed extravasation of contrast from the terminal ileum. Decision was made to take the patient to surgery emergently to undergo exploratory laparotomy and repair of the small bowel perforation. Procedure, risks, benefits and complications explained to the patient. She understand all of the above and decided to proceed. PROCEDURE: The procedure was done in the operating room. The patient was placed in supine position. General anesthesia induced by endotracheal intubation. Silva catheter and nasogastric tube were inserted. The abdomen prepped and draped in usual sterile fashion. An incision was made from the umbilicus to just above the symphysis pubis. The subcutaneous fat and linea alba divided with Bovie. The peritoneal cavity was entered. A large amount of bilious fluid was identified. The contents did not have any odor. This was aspirated. The small bowel was found to be covered by fibrinous material stained in green. The small bowel was then run from the terminal ileum proximally to the ligament of Treitz. An area of obvious perforation was identified about 20 cm proximal to the terminal ileum. There were also multiple areas of deserosalization in a single section of the small bowel. All these areas were marked with silk sutures. The small bowel was then run multiple times, and 2 additional areas of simple deserosalization were identified. These were repaired with Lembert interrupted 2-0 silk sutures. The area of perforation and loop of bowel with the areas of severe deserosalization were then treated equally. The small bowel was resected proximally and distally to the area of small bowel injury using a GI stapler through a mesentery opening. The mesentery was then divided with LigaSure, the specimen was removed from the surgical field and sent to pathology. The proximal and distal limbs of the small bowel were then placed [id number], and bowel clamps were placed proximally and distally to each end. The antimesenteric corner of the staple line was then opened with Bovie, and a GI stapler was then inserted and fired to create a [id number] enteroenterostomy. The large enterotomy was then closed with Allis clamps and TA stapler was fired to close it. The staple line was then reinforced with interrupted Lembert 2-0 silk sutures. The mesenteric defect was closed with running locking 2-0 silk suture. After this was performed, the small bowel was run multiple times, in a proximal to distal and distal to proximal fashion. No additional injuries were identified. The right transverse colon and left colon were then examined and found to be free from injury. The stomach and first portion of the duodenum were then examined and found to be free from injury as well. The liver was inspected manually and visually, without any evidence of injury. The stomach was then palpated and the nasogastric tube was identified in good position. At this point, the peritoneal cavity was irrigated with a total of 7 liters of warm normal saline, which was fully aspirated, and removal of an old residual enteric juice and bilious material. After this was accomplished, a rubber small bowel protector was placed and the abdominal wall was closed with running #1 looped PDS suture so as to approximate the linea alba. The rubber small bowel protector was then removed. The #1 looped PDS suture was then tied to itself. The subcutaneous tissue was infiltrated with 0.5% Marcaine with epinephrine. The skin edges approximated with interrupted inverted [id number] deep 3-0 Vicryl sutures and the skin closed with 4-0 running subcuticular suture, with Dermabond applied, and sterile dressings. The patient tolerated the procedure well, extubated and transferred to the recovery room in satisfactory condition. DICTATING PHYSICIAN: ELAINE ORLANDO M.D. [id number] PHY#: [id number] ID: [id number] JOB#: [id number] ACCT: [id number] cc:ELAINE ORLANDO M.D. > MTDD
[2017-12-26] MEDS: CEFOXITIN SODIUM 2 GM in DEXTROSE 5%-WATER 100 ML IV SCH ×4 (02:06→23:54)
[2017-12-26] MEDS: ONDANSETRON HCL INJ/PF 4 MG/2 ML SDV IV SCH ×4 (02:06→17:53)
[2017-12-26] MEDS: FAMOTIDINE INJ/PF 20 MG/2 ML SDV IV SCH ×3 (02:06→23:55)
[2017-12-26] MEDS: KETOROLAC TROMETHAMINE INJ/PF 30 MG/1 ML SDV IV PRN (05:26)
[2017-12-26] MEDS: METRONIDAZOLE 500 MG/NS RTU 100 ML IV SCH ×3 (05:26→23:53)
[2017-12-26 05:28] LABS: HEMATOCRIT 30.9 % (36.0-47.0); MEAN CORPUSCULAR HGB CONC 32.4 g/dL (32.0-36.0); MEAN CORPUSCULAR VOLUME 74 fl (80-97); PLATELET COUNT 331 10^3/uL (150-450); RED BLOOD COUNT 4.17 10^6/uL (3.72-5.28); RED CELL DISTRIBUTION WIDTH 19.2 % (11.5-14.0)
[2017-12-26 05:31] LABS: WHITE BLOOD COUNT 21.7 10^3/uL (4.0-10.5)
[2017-12-26 05:38] LABS: ANION GAP 10 (5-19); BLOOD UREA NITROGEN 4 mg/dL (7-20); CALCIUM 8.6 mg/dL (8.4-10.2); CARBON DIOXIDE 25 mmol/L (22-30); CHLORIDE 104 mmol/L (98-107); GLUCOSE 114 mg/dL (75-110); POTASSIUM 3.5 mmol/L (3.6-5.0); SODIUM 139.1 mmol/L (137-145)
[2017-12-26 05:53] LABS: ABSOLUTE LYMPHOCYTES# (MANUAL) 1.1 10^3/uL (0.5-4.7); ABSOLUTE NEUTROPHILS# (MANUAL) 20.6 10^3/uL (1.7-8.2); BAND NEUTROPHILS % (MANUAL) 4 % (3-5); BASOPHILS % (MANUAL) 0 % (0-2); EOSINOPHILS % (MANUAL) 0 % (0-6); LYMPHOCYTES % (MANUAL) 5 % (13-45); MONOCYTES % (MANUAL) 0 % (3-13); SEGMENTED NEUTROPHILS % (MAN) 91 % (42-78); TOTAL CELLS COUNTED 100
[2017-12-26 05:56] LABS: ANISOCYTOSIS 2+; HYPOCHROMASIA 2+; PLATELET COMMENT ADEQUATE; POIKILOCYTOSIS SLIGHT
[2017-12-26 05:57] LABS: BURR CELLS SLIGHT; OVALOCYTES SLIGHT
[2017-12-26] MEDS ORDERED: ENOXAPARIN SODIUM INJ 40 MG/0.4 ML DISP.SYRIN SUBCUT SCH (06:00)
[2017-12-26] MEDS: CIPROFLOXACIN 400 MG/D5W RTU 400 MG/200 ML RTUPB IV SCH ×2 (09:52→22:01)
[2017-12-26] MEDS ORDERED: FAMOTIDINE INJ/PF 20 MG/2 ML SDV IV SCH (10:00)
[2017-12-26] MEDS: HYDROMORPHONE HCL INJ/PF 2 MG/ML AMPULE IV PRN ×3 (10:10→20:58)
--- NOTE | 2017-12-26 10:33 | PDOC PROGRESS REPORT ---
Subjective Progress Note for:: 12/26/17 Reason For Visit: SMALL BOWEL OBSTRUCTIONS Patient is postoperative day 1 status post exploratory laparotomy, small bowel resection 2 for small bowel enterotomies following lysis of adhesions 3 days ago. No problems overnight. Physical Exam Vital Signs: Temp Pulse Resp BP Pulse Ox 98.5 F 51 L 16 117/50 L 100 12/26/17 07:52 12/26/17 07:52 12/26/17 07:52 12/26/17 07:52 12/26/17 07:52 Intake & Output 12/25/17 12/26/17 12/27/17 06:59 06:59 06:59 Intake Total 1650 4300 Output Total 2470 2025 Balance -820 2275 Weight 67.5 kg General appearance: PRESENT: no acute distress GI/Abdominal exam: PRESENT: other - Operative incision covered with appropriate dressing. Abdomen tender not distended no peritoneal signs no rigidity. Results Laboratory Results: 12/26/17 05:05 12/26/17 05:05 12/26/17 12/26/17 05:05 05:05 WBC 21.7 H D RBC 4.17 Hgb 10.0 L Hct 30.9 L MCV 74 L MCH 24.0 L MCHC 32.4 RDW 19.2 H Plt Count 331 Seg Neutrophils % Not Reportable Lymphocytes % Not Reportable Monocytes % Not Reportable Eosinophils % Not Reportable Basophils % Not Reportable Absolute Neutrophils Not Reportable Absolute Lymphocytes Not Reportable Absolute Monocytes Not Reportable Absolute Eosinophils Not Reportable Absolute Basophils Not Reportable Sodium 139.1 Potassium 3.5 L Chloride 104 Carbon Dioxide 25 Anion Gap 10 BUN 4 L Creatinine 0.49 L Est GFR ( Amer) > 60 Est GFR (Non-Af Amer) > 60 Glucose 114 H Calcium 8.6 Impressions: Abdomen X-Ray 12/25/17 00:00 IMPRESSION: FREE AIR, PRESUMED SECONDARY TO RECENT SURGERY (POSTOPERATIVE DAY 2 ). NO OTHER SIGNIFICANT FINDING. Abdomen/Pelvis CT 12/25/17 00:00 IMPRESSION: Contrast is noted to be leaking from the bowel in the distal ileum filling the left lower quadrant mesentery. Assessment & Plan - Diagnosis (1) Small bowel obstruction Is this a current diagnosis for this admission?: Yes Plan: Postoperative day 3 status post a laparoscopic lysis of adhesions; postoperative day 1 status post reexploration, small bowel resection 2 for enterotomies, doing well, leukocytosis likely related to intra-abdominal sepsis , on appropriate antibiotics empirically Recommendations: 1. Discontinue Silva catheter 2. Continue nasogastric decompression; increased pulmonary toilet, ambulation 3. We will add intravenous acetaminophen to her analgesic regimen. (2) Chlamydia Is this a current diagnosis for this admission?: Yes
[2017-12-26] MEDS: NORMAL SALINE 1000 ML 1,000 ML IV PRN ×2 (11:44→21:01)
[2017-12-26] MEDS: ACETAMINOPHEN INJ/PF 1000 MG/100 ML SDV IV SCH ×2 (11:48→17:51)
[2017-12-27] MEDS: HYDROMORPHONE HCL INJ/PF 2 MG/ML AMPULE IV PRN ×4 (00:27→22:51)
[2017-12-27] MEDS: ACETAMINOPHEN INJ/PF 1000 MG/100 ML SDV IV SCH ×3 (03:03→14:30)
[2017-12-27 05:08] LABS: ABSOLUTE BASOPHILS # (AUTO) 0.1 10^3/uL (0.0-0.2); ABSOLUTE LYMPHOCYTES (AUTO) 2.2 10^3/uL (0.5-4.7); ABSOLUTE MONOCYTES (AUTO) 0.8 10^3/uL (0.1-1.4); ABSOLUTE NEUT (AUTO) 11.7 10^3/uL (1.7-8.2); BASOPHILS % (AUTO) 0.4 % (0-2); EOSINOPHILS % (AUTO) 0.3 % (0-6); HEMATOCRIT 25.4 % (36.0-47.0); HEMOGLOBIN 8.3 g/dL (12.0-15.5); LYMPHOCYTES % (AUTO) 14.8 % (13-45); MEAN CORPUSCULAR HEMOGLOBIN 24.2 pg (27.0-33.4); MEAN CORPUSCULAR HGB CONC 32.6 g/dL (32.0-36.0); MEAN CORPUSCULAR VOLUME 74 fl (80-97); MONOCYTES % (AUTO) 5.4 % (3-13); PLATELET COUNT 292 10^3/uL (150-450); RED BLOOD COUNT 3.41 10^6/uL (3.72-5.28); RED CELL DISTRIBUTION WIDTH 19.5 % (11.5-14.0); SEGMENTED NEUTROPHILS % (AUTO) 79.1 % (42-78); TOTAL CELLS COUNTED % (AUTO) 100 %; WHITE BLOOD COUNT 14.8 10^3/uL (4.0-10.5)
[2017-12-27 05:18] LABS: ANION GAP 12 (5-19); BLOOD UREA NITROGEN 9 mg/dL (7-20); CALCIUM 8.2 mg/dL (8.4-10.2); CARBON DIOXIDE 24 mmol/L (22-30); CHLORIDE 105 mmol/L (98-107); GLUCOSE 80 mg/dL (75-110); SODIUM 141.2 mmol/L (137-145)
[2017-12-27 05:31] LABS: POTASSIUM 2.8 mmol/L (3.6-5.0)
[2017-12-27] MEDS: CEFOXITIN SODIUM 2 GM in DEXTROSE 5%-WATER 100 ML IV SCH ×2 (05:58→15:38)
[2017-12-27] MEDS ORDERED: POTASSIUM CHLORIDE 20 MEQ/50 ML RTU IV SCH (06:00)
[2017-12-27] MEDS: METRONIDAZOLE 500 MG/NS RTU 100 ML IV SCH ×3 (06:01→22:51)
[2017-12-27] MEDS: KETOROLAC TROMETHAMINE INJ/PF 30 MG/1 ML SDV IV PRN (06:11)
[2017-12-27] MEDS: ONDANSETRON HCL INJ/PF 4 MG/2 ML SDV IV SCH ×3 (07:25→17:11)
[2017-12-27] MEDS: ENOXAPARIN SODIUM INJ 40 MG/0.4 ML DISP.SYRIN SUBCUT SCH (09:54)
[2017-12-27] MEDS: FAMOTIDINE INJ/PF 20 MG/2 ML SDV IV SCH ×2 (09:54→22:51)
[2017-12-27] MEDS: POTASSIUM CHLORIDE 20 MEQ/50 ML RTU IV SCH ×3 (09:54→15:36)
[2017-12-27] MEDS: NORMAL SALINE 1000 ML 1,000 ML IV PRN ×2 (09:54→11:03)
[2017-12-27] MEDS: CIPROFLOXACIN 400 MG/D5W RTU 400 MG/200 ML RTUPB IV SCH ×2 (11:02→21:30)
--- NOTE | 2017-12-27 11:19 | PDOC PROGRESS REPORT ---
Subjective Progress Note for:: 12/27/17 Subjective:: Feels well. Passing gas. No nausea Reason For Visit: SMALL BOWEL OBSTRUCTIONS Physical Exam Vital Signs: Temp Pulse Resp BP Pulse Ox 98.3 F 70 16 115/60 100 12/27/17 07:41 12/27/17 07:41 12/27/17 07:41 12/27/17 07:41 12/27/17 07:41 Intake & Output 12/26/17 12/27/17 12/28/17 06:59 06:59 06:59 Intake Total 4300 1500 Output Total 2024 2000 Balance 2275 -500 Weight 67.5 kg 69.2 kg General appearance: PRESENT: no acute distress, cooperative Respiratory exam: PRESENT: clear to auscultation [place] Cardiovascular exam: PRESENT: RRR GI/Abdominal exam: PRESENT: other - Soft, nondistended, mild diffuse abdominal tenderness without peritoneal signs. Active bowel sounds Extremities exam: PRESENT: other - No swelling and no tenderness. Psychiatric exam: PRESENT: appropriate affect Results Laboratory Results: 12/27/17 04:58 12/27/17 04:58 12/27/17 12/27/17 04:58 04:58 WBC 14.8 H RBC 3.41 L Hgb 8.3 L Hct 25.4 L MCV 74 L MCH 24.2 L MCHC 32.6 RDW 19.5 H Plt Count 292 Seg Neutrophils % 79.1 H Lymphocytes % 14.8 Monocytes % 5.4 Eosinophils % 0.3 Basophils % 0.4 Absolute Neutrophils 11.7 H Absolute Lymphocytes 2.2 Absolute Monocytes 0.8 Absolute Eosinophils 0.0 Absolute Basophils 0.1 Sodium 141.2 Potassium 2.8 L* Chloride 105 Carbon Dioxide 24 Anion Gap 12 BUN 9 Creatinine 0.58 Est GFR ( Amer) > 60 Est GFR (Non-Af Amer) > 60 Glucose 80 Calcium 8.2 L Impressions: Abdomen X-Ray 12/25/17 00:00 IMPRESSION: FREE AIR, PRESUMED SECONDARY TO RECENT SURGERY (POSTOPERATIVE DAY 2 ). NO OTHER SIGNIFICANT FINDING. Abdomen/Pelvis CT 12/25/17 00:00 IMPRESSION: Contrast is noted to be leaking from the bowel in the distal ileum filling the left lower quadrant mesentery. Assessment & Plan - Diagnosis (1) Small bowel obstruction Is this a current diagnosis for this admission?: Yes Plan: Status post exploratory laparotomy with small bowel resection. Patient has evidence of resumption of bowel function. Will DC NG tube and start clear liquids. Encourage ambulation. Replace potassium.
[2017-12-27] MEDS: ACETAMINOPHEN 100 ML IV SCH (20:55)
[2017-12-27] MEDS ORDERED: ACETAMINOPHEN INJ/PF 1000 MG/100 ML SDV IV SCH (21:00)
[2017-12-28] MEDS: CEFOXITIN SODIUM 2 GM in DEXTROSE 5%-WATER 100 ML IV SCH ×4 (00:23→23:59)
[2017-12-28] MEDS: ONDANSETRON HCL INJ/PF 4 MG/2 ML SDV IV SCH ×4 (00:24→17:22)
[2017-12-28] MEDS: HYDROMORPHONE HCL INJ/PF 2 MG/ML AMPULE IV PRN ×5 (02:03→22:54)
[2017-12-28] MEDS: ACETAMINOPHEN 100 ML IV SCH ×2 (03:40→09:34)
[2017-12-28] MEDS: METRONIDAZOLE 500 MG/NS RTU 100 ML IV SCH ×3 (05:01→22:50)
[2017-12-28 05:42] LABS: ABSOLUTE BASOPHILS # (AUTO) 0.1 10^3/uL (0.0-0.2); ABSOLUTE EOSINOPHILS # (AUTO) 0.2 10^3/uL (0.0-0.6); ABSOLUTE LYMPHOCYTES (AUTO) 2.2 10^3/uL (0.5-4.7); ABSOLUTE MONOCYTES (AUTO) 0.5 10^3/uL (0.1-1.4); ABSOLUTE NEUT (AUTO) 7.9 10^3/uL (1.7-8.2); BASOPHILS % (AUTO) 0.6 % (0-2); EOSINOPHILS % (AUTO) 1.6 % (0-6); HEMATOCRIT 26.3 % (36.0-47.0); HEMOGLOBIN 8.6 g/dL (12.0-15.5); LYMPHOCYTES % (AUTO) 19.8 % (13-45); MEAN CORPUSCULAR HEMOGLOBIN 24.5 pg (27.0-33.4); MEAN CORPUSCULAR HGB CONC 32.8 g/dL (32.0-36.0); MEAN CORPUSCULAR VOLUME 75 fl (80-97); PLATELET COUNT 303 10^3/uL (150-450); RED BLOOD COUNT 3.53 10^6/uL (3.72-5.28); RED CELL DISTRIBUTION WIDTH 19.8 % (11.5-14.0); TOTAL CELLS COUNTED % (AUTO) 100 %; WHITE BLOOD COUNT 10.9 10^3/uL (4.0-10.5)
[2017-12-28 06:02] LABS: ANION GAP 9 (5-19); BLOOD UREA NITROGEN 4 mg/dL (7-20); CALCIUM 8.6 mg/dL (8.4-10.2); CARBON DIOXIDE 24 mmol/L (22-30); CHLORIDE 108 mmol/L (98-107); GLUCOSE 76 mg/dL (75-110); POTASSIUM 3.5 mmol/L (3.6-5.0); SODIUM 140.5 mmol/L (137-145)
[2017-12-28] MEDS: NORMAL SALINE 1000 ML 1,000 ML IV PRN ×2 (06:33→18:46)
[2017-12-28] MEDS: CIPROFLOXACIN 400 MG/D5W RTU 400 MG/200 ML RTUPB IV SCH ×2 (09:36→21:24)
[2017-12-28] MEDS: ENOXAPARIN SODIUM INJ 40 MG/0.4 ML DISP.SYRIN SUBCUT SCH (09:37)
[2017-12-28] MEDS: FAMOTIDINE INJ/PF 20 MG/2 ML SDV IV SCH ×2 (09:37→21:24)
[2017-12-28] MEDS ORDERED: HYDROCODONE/ACETAMINOPHEN 10-325 MG TABLET PO PRN (09:54)
--- NOTE | 2017-12-28 09:54 | PDOC PROGRESS REPORT ---
Subjective Progress Note for:: 12/28/17 Reason For Visit: SMALL BOWEL OBSTRUCTIONS Physical Exam Vital Signs: Temp Pulse Resp BP Pulse Ox 98.1 F 51 L 15 118/52 L 99 12/28/17 07:49 12/28/17 07:49 12/28/17 07:49 12/28/17 07:49 12/28/17 07:49 Intake & Output 12/27/17 12/28/17 12/29/17 06:59 06:59 06:59 Intake Total 1500 790 Output Total 1999 3650 Balance -500 -2860 Weight 69.2 kg 69 kg Results Laboratory Results: 12/28/17 04:59 12/28/17 04:59 12/28/17 12/28/17 04:59 04:59 WBC 10.9 H RBC 3.53 L Hgb 8.6 L Hct 26.3 L MCV 75 L MCH 24.5 L MCHC 32.8 RDW 19.8 H Plt Count 303 Seg Neutrophils % 73.0 Lymphocytes % 19.8 Monocytes % 5.0 Eosinophils % 1.6 Basophils % 0.6 Absolute Neutrophils 7.9 Absolute Lymphocytes 2.2 Absolute Monocytes 0.5 Absolute Eosinophils 0.2 Absolute Basophils 0.1 Sodium 140.5 Potassium 3.5 L Chloride 108 H Carbon Dioxide 24 Anion Gap 9 BUN 4 L Creatinine 0.51 L Est GFR ( Amer) > 60 Est GFR (Non-Af Amer) > 60 Glucose 76 Calcium 8.6 Impressions: Abdomen X-Ray 12/25/17 00:00 IMPRESSION: FREE AIR, PRESUMED SECONDARY TO RECENT SURGERY (POSTOPERATIVE DAY 2 ). NO OTHER SIGNIFICANT FINDING. Abdomen/Pelvis CT 12/25/17 00:00 IMPRESSION: Contrast is noted to be leaking from the bowel in the distal ileum filling the left lower quadrant mesentery. Assessment & Plan - Diagnosis (1) Small bowel obstruction Is this a current diagnosis for this admission?: Yes - Plan Summary Plan Summary: This is a 22-year-old female status post exploratory laparotomy for small bowel obstruction/perforation. She reports that she is passing flatus and ambulating. She denies any nausea or vomiting. She is tolerating liquids. I will advance her to a regular diet. I will begin her on oral pain medications. If she continues to progress, plan for discharge in the next 1-2 days.
[2017-12-28] MEDS: POTASSIUM CHLORIDE 10 MEQ TABLET.SA PO SCH ×2 (10:46→21:24)
[2017-12-29] MEDS: ONDANSETRON HCL INJ/PF 4 MG/2 ML SDV IV SCH ×2 (00:03→05:34)
[2017-12-29] MEDS: HYDROMORPHONE HCL INJ/PF 2 MG/ML AMPULE IV PRN (05:32)
[2017-12-29] MEDS: NORMAL SALINE 1000 ML 1,000 ML IV PRN (05:32)
[2017-12-29] MEDS: METRONIDAZOLE 500 MG/NS RTU 100 ML IV SCH (05:32)
[2017-12-29 05:47] LABS: ABSOLUTE BASOPHILS # (AUTO) 0.1 10^3/uL (0.0-0.2); ABSOLUTE EOSINOPHILS # (AUTO) 0.2 10^3/uL (0.0-0.6); ABSOLUTE MONOCYTES (AUTO) 0.7 10^3/uL (0.1-1.4); ABSOLUTE NEUT (AUTO) 6.3 10^3/uL (1.7-8.2); BASOPHILS % (AUTO) 0.9 % (0-2); HEMATOCRIT 28.2 % (36.0-47.0); HEMOGLOBIN 9.2 g/dL (12.0-15.5); MEAN CORPUSCULAR HEMOGLOBIN 24.4 pg (27.0-33.4); MEAN CORPUSCULAR HGB CONC 32.7 g/dL (32.0-36.0); MEAN CORPUSCULAR VOLUME 75 fl (80-97); MONOCYTES % (AUTO) 7.1 % (3-13); PLATELET COUNT 321 10^3/uL (150-450); RED BLOOD COUNT 3.77 10^6/uL (3.72-5.28); RED CELL DISTRIBUTION WIDTH 20.3 % (11.5-14.0); TOTAL CELLS COUNTED % (AUTO) 100 %; WHITE BLOOD COUNT 9.3 10^3/uL (4.0-10.5)
[2017-12-29 06:01] LABS: ANION GAP 9 (5-19); BLOOD UREA NITROGEN 2 mg/dL (7-20); CALCIUM 8.8 mg/dL (8.4-10.2); CARBON DIOXIDE 26 mmol/L (22-30); CHLORIDE 105 mmol/L (98-107); GLUCOSE 81 mg/dL (75-110); POTASSIUM 3.4 mmol/L (3.6-5.0); SODIUM 140.2 mmol/L (137-145)
[2017-12-29] MEDS: CEFOXITIN SODIUM 2 GM in DEXTROSE 5%-WATER 100 ML IV SCH (06:37)
[2017-12-29 08:25] VITALS: BP 117/54
--- NOTE | 2017-12-29 08:54 | PDOC PROGRESS REPORT ---
Subjective Progress Note for:: 12/29/17 Subjective:: Tolerating diet well. Good bowel function. Reason For Visit: SMALL BOWEL OBSTRUCTIONS Physical Exam Vital Signs: Temp Pulse Resp BP Pulse Ox 98.6 F 50 L 18 117/54 L 99 12/29/17 08:24 12/29/17 08:24 12/29/17 08:24 12/29/17 08:24 12/29/17 08:24 Intake & Output 12/28/17 12/29/17 12/30/17 06:59 06:59 06:59 Intake Total 790 3877 Output Total 3650 3300 Balance -2860 577 Weight 69 kg General appearance: PRESENT: no acute distress, cooperative Respiratory exam: PRESENT: clear to auscultation [place] Cardiovascular exam: PRESENT: RRR GI/Abdominal exam: PRESENT: other - Soft, nondistended, minimal abdominal tenderness. Wound clean dry and intact. Extremities exam: PRESENT: other - No swelling and no edema. Results Laboratory Results: 12/29/17 04:57 12/29/17 04:57 12/29/17 12/29/17 04:57 04:57 WBC 9.3 RBC 3.77 Hgb 9.2 L Hct 28.2 L MCV 75 L MCH 24.4 L MCHC 32.7 RDW 20.3 H Plt Count 321 Seg Neutrophils % 68.0 Lymphocytes % 22.0 Monocytes % 7.1 Eosinophils % 2.0 Basophils % 0.9 Absolute Neutrophils 6.3 Absolute Lymphocytes 2.0 Absolute Monocytes 0.7 Absolute Eosinophils 0.2 Absolute Basophils 0.1 Sodium 140.2 Potassium 3.4 L Chloride 105 Carbon Dioxide 26 Anion Gap 9 BUN 2 L Creatinine 0.52 Est GFR ( Amer) > 60 Est GFR (Non-Af Amer) > 60 Glucose 81 Calcium 8.8 Impressions: Abdomen X-Ray 12/25/17 00:00 IMPRESSION: FREE AIR, PRESUMED SECONDARY TO RECENT SURGERY (POSTOPERATIVE DAY 2 ). NO OTHER SIGNIFICANT FINDING. Abdomen/Pelvis CT 12/25/17 00:00 IMPRESSION: Contrast is noted to be leaking from the bowel in the distal ileum filling the left lower quadrant mesentery. Assessment & Plan - Diagnosis (1) Small bowel obstruction Is this a current diagnosis for this admission?: Yes Plan: Status post exploratory laparotomy with small bowel resection. Doing well with good bowel function. Will discharge patient home. Follow-up in a couple weeks.
--- NOTE | 2017-12-29 09:20 | DISCHARGE SUMMARY E ---
Discharge Summary NAME: GERARDO GONZALEZ : 1995 AGE: 22Y ADMITTED: 12/23/2017 DISCHARGED: 12/29/2017 DISCHARGE DIAGNOSES: 1. Small bowel obstruction. 2. Perforated small bowel. PROCEDURES PERFORMED DURING HOSPITALIZATION: 1. Laparoscopic lysis of adhesions. 2. Diagnostic laparoscopy performed by Dr. Blunt on 12/23/2017. 3. Exploratory laparotomy with small bowel resection x2 performed by Dr. Blunt on 12/25/2017. HOSPITAL COURSE: The patient was initially observed, but with continued symptoms, she underwent laparoscopic lysis of adhesions. Postoperative course was complicated by peritonitis. She underwent exploratory laparotomy and was noted with perforation of the terminal ileum at 20 cm proximal to the ileocecal valve. The patient underwent small bowel resection x2. She did well postoperatively. She had gradual resumption of bowel function. She was tolerating a diet well. At the time of discharge, her abdominal exam looked good and her wound looked good. The patient is now being discharged to home in good condition and she will follow up with [facility] in 2 weeks. She is encouraged to stay active at home, but avoid strenuous activity. We will determine her work status when she does return in 2 weeks. She is to stay out of work in the meantime. DISCHARGE MEDICATIONS: 1. Percocet 1 p.o. q. 4 hours p.r.n. pain. 2. Colace 100 mg 1 p.o. b.i.d. DIET: She may follow a regular diet. DICTATING PHYSICIAN: ASTRID MARTINEZ M.D. [id number] PHY#: [id number] ID: [id number] JOB#: [id number] ACCT: [id number] cc:Raji NORIEGA M.D. >
[2017-12-29] MEDS: CIPROFLOXACIN 400 MG/D5W RTU 400 MG/200 ML RTUPB IV SCH (09:31)
[2017-12-29] MEDS: FAMOTIDINE INJ/PF 20 MG/2 ML SDV IV SCH (09:32)
[2017-12-29] MEDS: ENOXAPARIN SODIUM INJ 40 MG/0.4 ML DISP.SYRIN SUBCUT SCH (09:33)
[2017-12-29] MEDS ORDERED: CEFOXITIN SODIUM 2 GM in NORMAL SALINE 100 ML IV SCH (14:00)
== END 2017-12-29 11:40 | disposition home or self-care (01) | DRG 329 ==
LOC: ER 09:02 → EH 16:54 → 2N 18:06 → OBSVTOIN 12-23 14:30
PROVIDERS: ATTEND Surgery
PROC: 0DN84ZZ Release Small Intestine, Percutaneous Endoscopic Approach (ICD-10-PCS; 2017-12-23)
PROC: 0DNB4ZZ Release Ileum, Percutaneous Endoscopic Approach (ICD-10-PCS; 2017-12-23)
PROC: 0DQ84ZZ Repair Small Intestine, Percutaneous Endoscopic Approach (ICD-10-PCS; 2017-12-25)
PROC: 0DB84ZZ Excision of Small Intestine, Percutaneous Endoscopic Approach (ICD-10-PCS; principal; 2017-12-25 21:00)
DX: K56.52 Intestinal adhesions [bands] with complete obstruction (principal); K63.1 Perforation of intestine (nontraumatic); K65.9 Peritonitis, unspecified; F17.200 Nicotine dependence, unspecified, uncomplicated; A74.9 Chlamydial infection, unspecified; I48.91 Unspecified atrial fibrillation; K66.8 Other specified disorders of peritoneum; Z90.49 Acquired absence of other specified parts of digestive tract; Z90.721 Acquired absence of ovaries, unilateral
CPT/HCPCS: 36415; 74019; 74177; 790; 80048; 80053; 81001; 83690; 83735; 84703; 85025; 87070; 87075; 87205; 87210; 87491; 87591; 88307; 94799; 96361; 96365; 96366; 96375; 96376; 99285; G0378; J0131; J0330; J0456; J0694; J0744; J1100; J1170; J1650; J1885; J2250; J2405; J2704; J3010; J3480; J3490; J7030; J7120; S0028